=== PATIENT | female | born 1955 ===

== ENCOUNTER 2018-01-09 11:25 | Outpatient (CLI) | payer BC | END 2018-01-09 11:26 | disposition home or self-care (01) | LOC: BICMAMMO 11:25 | PROVIDERS: ATTEND Family Medicine | DX: Z12.31 Encounter for screening mammogram for malignant neoplasm of breast (principal) | CPT/HCPCS: 77063; 77067 ==

== ENCOUNTER 2019-07-14 09:03 | Outpatient (CLI) | payer BC ==
--- NOTE | 2019-07-14 10:05 | MMO ---
Bilateral MAMMO Bilat Diag [facility]. CLINICAL HISTORY: Patient is 63 years old and is seen for diagnostic exam and palpable abnormality in the left breast. The patient has no family history of breast cancer. The patient has no personal history of cancer. The patient has a history of right Excisional Biopsy in 1993 - benign. VIEWS: The views performed were: bilateral craniocaudal with tomosynthesis; bilateral mediolateral oblique with tomosynthesis; and bilateral mediolateral with tomosynthesis. FILMS COMPARED: The present examination has been compared to prior imaging studies performed at [facility] on 11/09/2014, 04/03/2016, 01/09/2018 and 07/14/2019. This study has been interpreted with the assistance of computer-aided detection. MAMMOGRAM FINDINGS: There are scattered fibroglandular densities. There are no suspicious masses, calcifications or areas of architectural distortion. There are benign appearing calcifications in both breasts. No mammographic or sonographic abnormality at the left breast palpable marker. There are no suspicious masses, suspicious calcifications, or new areas of architectural distortion. IMPRESSION: THERE IS NO MAMMOGRAPHIC EVIDENCE OF MALIGNANCY. A ROUTINE FOLLOW-UP MAMMOGRAM IN 1 YEAR IS RECOMMENDED. THE RESULTS OF THIS EXAM WERE SENT TO THE PATIENT. ACR BI-RADS Category 2 - Benign finding MAMMOGRAPHY NOTE: 1. A negative mammogram report should not delay a biopsy if a dominant of clinically suspicious mass is present. 2. Approximately 10% to 15% of breast cancers are not detected by mammography. 3. Adenosis and dense breasts may obscure an underlying neoplasm. Reported by: LY GRANGER MD Electonically Signed: [id number]
--- NOTE | 2019-07-14 11:43 | ULT ---
LEFT BREAST ULTRASOUND: HISTORY: Palpable focus in the left axilla. COMPARISON: None. TECHNIQUE: Targeted sonographic imaging of the region of concern was performed. Static images are reviewed. FINDINGS: Static images demonstrate soft tissue echotexture. No solid or cystic masses. No evidence of lympha denopathy. IMPRESSION: BIRADS category 2, benign findings. RECOMMENDATIONS: Annual mammogram. With regard to the palpable focus, further evaluation including additional imaging and/or biopsy can be based upon clinical finding and/or suspicion. POS: [facility]
== END 2019-07-14 09:04 | disposition home or self-care (01) ==
LOC: BICMAMMO 09:03
PROVIDERS: ATTEND Family Medicine
DX: N63.21 Unspecified lump in the left breast, upper outer quadrant (principal)
CPT/HCPCS: 77066; G0279